=== PATIENT | male | born 1975 ===

== ENCOUNTER → 2018-10-13 | Outpatient (CLI) | payer BC | END | disposition home or self-care (01) | LOC: LAB SHORT 07:34 → PLD 07:34 | DX: D03.72 Melanoma in situ of left lower limb, including hip (principal) | CPT/HCPCS: 88305 ==

== ENCOUNTER → 2018-10-20 | Outpatient (CLI) | payer BC | END | disposition home or self-care (01) | LOC: LAB SHORT 07:49 → PLD 07:49 | DX: D03.72 Melanoma in situ of left lower limb, including hip (principal) | CPT/HCPCS: 88305 ==

== ENCOUNTER → 2019-04-20 | Outpatient (CLI) | payer BC | END | disposition home or self-care (01) | LOC: LAB SHORT 08:21 → PLD 08:21 | DX: D22.61 Melanocytic nevi of right upper limb, including shoulder (principal) | CPT/HCPCS: 88305 ==

== ENCOUNTER → 2019-05-25 | Outpatient (CLI) | payer BC | END | disposition home or self-care (01) | LOC: LAB SHORT 07:40 → PLD 07:40 | DX: D22.71 Melanocytic nevi of right lower limb, including hip (principal) | CPT/HCPCS: 88305 ==

== ENCOUNTER → 2019-07-06 | Outpatient (CLI) | payer BC | END | disposition home or self-care (01) | LOC: LAB SHORT 08:06 → PLD 08:06 | DX: D48.5 Neoplasm of uncertain behavior of skin (principal) | CPT/HCPCS: 88305 ==

== ENCOUNTER → 2020-10-24 | Outpatient (CLI) | payer BC | END | disposition home or self-care (01) | LOC: LAB SHORT 07:41 → LAB 07:41 | DX: D03.59 Melanoma in situ of other part of trunk (principal); D22.61 Melanocytic nevi of right upper limb, including shoulder; D22.5 Melanocytic nevi of trunk; D22.72 Melanocytic nevi of left lower limb, including hip; D22.71 Melanocytic nevi of right lower limb, including hip | CPT/HCPCS: 88305 ==

== ENCOUNTER → 2020-11-20 | Outpatient (CLI) | payer BC | END | disposition home or self-care (01) | LOC: LAB SHORT 08:06 | DX: D03.59 Melanoma in situ of other part of trunk (principal); D48.5 Neoplasm of uncertain behavior of skin | CPT/HCPCS: 88305 ==